=== PATIENT | female | born 1960 | race Caucasian/White ===

== ENCOUNTER 2021-03-02 22:10 | Emergency (ER) | payer MEDICAID, OTHER ==
[~2021-03-02] VITALS: Ht 162.6 cm; Wt 79.5 kg
[~2021-03-02 22:10] MED LIST: ALBU8.5H17 IH; ASPI-611 PO; CARV-50 PO; FURO40TA4 PO; HYDR-4383 PO; LEVO25TA7 PO; SACU1TAB7 PO
[2021-03-02 22:21] VITALS: BP 128/74
[2021-03-02] MEDS ORDERED: PRED20TA PO (23:44)
[2021-03-02] MEDS ORDERED: AMOX-422 PO (23:44)
[2021-03-02] MEDS ORDERED: ACET-1025 PO (23:44)
[2021-03-02] MEDS ORDERED: acetaminophen 325mg tablet PO ONE (23:45)
[2021-03-02] MEDS ORDERED: amox tr/potassium clavulanate 875/125mg TAB PO ONE (23:45)
== END 2021-03-03 00:33 | disposition home or self-care (01) ==
LOC: ER 22:11
DX: J32.9 Chronic sinusitis, unspecified (principal); Z20.822 Contact with and (suspected) exposure to COVID-19; R51.9 Headache, unspecified; K08.89 Other specified disorders of teeth and supporting structures; K04.7 Periapical abscess without sinus; I50.9 Heart failure, unspecified; J44.9 Chronic obstructive pulmonary disease, unspecified; Z72.89 Other problems related to lifestyle; Z88.1 Allergy status to other antibiotic agents; Z88.8 Allergy status to other drugs, medicaments and biological substances; Z88.5 Allergy status to narcotic agent; Z79.82 Long term (current) use of aspirin; Z79.899 Other long term (current) drug therapy
CPT/HCPCS: 70450; 87635; 99284; C9803

== ENCOUNTER 2021-08-05 08:59 | Inpatient (IN) | payer MEDICAID ==
[~2021-08-05] VITALS: Ht 162.6 cm; Wt 85.5 kg
[2021-08-05 10:29] LABS: ALANINE AMINOTRANSFERASE 40 U/L (12-78); ALBUMIN 3.6 G/DL (3.4-5.0); ALBUMIN/GLOBULIN RATIO 0.9 (1.1-1.5); ALKALINE PHOSPHATASE 115 IU/L (46-116); ANION GAP 9 (8-16); ASPARTATE AMINO TRANSFERASE 27 U/L (10-37); BILIRUBIN,TOTAL 0.4 MG/DL (0.1-1.0); BLOOD UREA NITROGEN 17 MG/DL (7-18); BUN/CREATININE RATIO 18.9 (6.6-38.0); CALCIUM 9.3 MG/DL (8.5-10.1); CHLORIDE 105 MMOL/L (99-107); GLUCOSE 97 MG/DL (70-104); POTASSIUM 3.6 MMOL/L (3.5-5.1); SODIUM 141 MMOL/L (135-145); TOTAL CARBON DIOXIDE 26.9 MMOL/L (24-32); TOTAL PROTEIN 7.6 G/DL (6.4-8.2); eGFR 64 ML/MIN
[2021-08-05 10:32] LABS: BASOPHILS # (AUTO) 0.1 X10'3 (0-0.2); BASOPHILS % (AUTO) 0.6 % (0-1); EOSINOPHILS # (AUTO) 0.1 X10'3 (0-0.9); EOSINOPHILS % (AUTO) 1.5 % (0-6); HEMATOCRIT 43.7 % (35.0-45.0); HEMOGLOBIN 14.4 g/dl (12.0-16.0); LYMPHOCYTES # (AUTO) 1.4 X10'3 (1.1-4.8); LYMPHOCYTES % (AUTO) 15.2 % (21-51); MEAN PLATELET VOLUME 8.6 FL (7.4-10.4); MONOCYTES # (AUTO) 0.8 X10'3 (0-0.9); MONOCYTES % (AUTO) 8.3 % (2-12); NEUTROPHILS # (AUTO) 6.8 X10'3 (1.8-7.7); NEUTROPHILS % (AUTO) 74.4 % (42-75); PLATELET COUNT 315 X10'3 (140-440); RED BLOOD COUNT 4.65 X10'6 (4.20-5.60); WHITE BLOOD COUNT 9.2 X10'3 (4.5-11.0)
--- NOTE | 2021-08-05 14:00 | NUR ---
PT AMB WITH STEADY GAIT TO TRIAGE, NO CHEST PAIN/DISCOMFORT, NO SOB, RESP EVEN AND UNLABORED, SKIN P/W/D, WAITING FOR BED IN ER, NONE ARE AVAILABLE
[2021-08-05 16:46] LABS: CLARITY,URINE CLEAR (Clear); COLOR,URINE YELLOW (Yellow); GLUCOSE, URINE NEGATIVE (Neg); KETONES,URINE NEGATIVE (Neg); LEUKOCYTE ESTERASE ,URINE NEGATIVE (Neg); NITRITES, URINE NEGATIVE (Neg); OCCULT BLOOD,URINE TRACE-INTACT (Neg); PROTEIN,URINE NEGATIVE (Neg); UROBILINOGEN,URINE 0.2 E.U/dL (0.2-1.0)
[2021-08-05 16:47] LABS: UA COLLECTION TYPE CLN CATCH MIDSTREAM
[2021-08-05 16:51] LABS: BACTERIA,URINE FEW /HPF (Neg); CAL OXALATE CRYSTALS 1+ /HPF (NEGATIVE); MUCUS STRANDS FEW /LPF (Neg); RBC,URINE 0-2 /HPF (0-2); SQUAMOUS EPITHELIAL CELL,UR FEW /LPF (FEW); WBC,URINE 0-4 /HPF (0-4)
[2021-08-05] MEDS ORDERED: TRAZ-251 PO (18:53)
[2021-08-05 19:06] LABS: D-DIMER 0.46 MG/L FEU (0-0.50)
[2021-08-05] MEDS ORDERED: potassium Cl 20 mEq SR tablet PO STA (19:24)
[2021-08-05] MEDS ORDERED: furosemide 20MG tablet PO ONE (19:25)
[2021-08-05] MEDS ORDERED: aspirin 325mg tablet PO ONE (19:25)
[2021-08-05] MEDS ORDERED: acetaminophen 325mg tablet PO PRN ×2 (20:05)
[2021-08-05] MEDS ORDERED: ondansetron 4mg rapidly disintigrating tab PO PRN (20:05)
[2021-08-05] MEDS ORDERED: diphenhydrAMINE 50 mg/ml inj IV PRN (20:05)
[2021-08-05] MEDS ORDERED: morphine 2 MG/ML inj. syringe IV PRN (20:05)
[2021-08-05] MEDS ORDERED: mag hydrox/Alum hydrox/simeth 30ml oral suspension PO PRN (20:05)
[2021-08-05] MEDS ORDERED: magnesium hydroxide 30ml (MOM) UD suspension PO PRN (20:05)
[2021-08-05] MEDS ORDERED: acetaminophen 650mg rectal suppository RC PRN (20:05)
[2021-08-05] MEDS ORDERED: bisacodyl 10mg suppository rectal RC PRN (20:05)
[2021-08-05] MEDS ORDERED: potassium Cl 20mEq in NS 1,000 ML IV SCH (20:05)
[2021-08-05] MEDS ORDERED: ondansetron/PF 4mg/2ml inj IV PRN (20:05)
[2021-08-05] MEDS ORDERED: diphenhydrAMINE 25mg capsule PO PRN (20:05)
[2021-08-05] MEDS ORDERED: heparin 10,000 units/1 ML INJ IV ONE (20:10)
[2021-08-05] MEDS ORDERED: ALBUTEROL INHALER 1 PUFF/90 MCG INHALER IH PRN (20:15)
[2021-08-05 20:57] LABS: CREATINE KINASE 45 U/L (26-192); LIPASE 87 U/L (73-393); MAGNESIUM 1.8 MG/DL (1.5-2.4); PHOSPHORUS 4.3 MG/DL (2.3-4.5)
[2021-08-05 20:59] LABS: HEMOGLOBIN A1C 5.8 % (4.5-6.2)
[2021-08-05 21:16] LABS: APTT 26 SECONDS (22-32)
[2021-08-05 21:59] LABS: OSMOLALITY 297 MOSM/K (280-300)
[2021-08-05 22:00] VITALS: BP 115/57
[2021-08-05] MEDS: temazepam 15mg capsule PO PRN (22:35)
[2021-08-05] MEDS: HYDROcodone/acetaminophen 5mg/325mg tablet PO PRN (22:36)
[2021-08-05] MEDS: heparin 25,000 UNIT/250ml bag 250 ML IV SCH (23:03)
[2021-08-06] VITALS (8 sets, daily range): BP systolic 82–126; BP diastolic 38–75
[2021-08-06] MEDS: HYDROcodone/acetaminophen 5mg/325mg tablet PO PRN (02:53)
[2021-08-06 06:30] LABS: BASOPHILS % (AUTO) 0.5 % (0-1); EOSINOPHILS # (AUTO) 0.2 X10'3 (0-0.9); EOSINOPHILS % (AUTO) 2.1 % (0-6); HEMATOCRIT 42.3 % (35.0-45.0); LYMPHOCYTES # (AUTO) 2.2 X10'3 (1.1-4.8); LYMPHOCYTES % (AUTO) 26.6 % (21-51); MEAN CORPUSCULAR HEMOGLOBIN 30.7 PG (27.0-31.0); MEAN CORPUSCULAR HGB CONC 33.1 g/dL (33.0-36.5); MEAN CORPUSCULAR VOLUME 92.7 FL (78-98); MONOCYTES # (AUTO) 0.8 X10'3 (0-0.9); MONOCYTES % (AUTO) 9.5 % (2-12); NEUTROPHILS # (AUTO) 5.1 X10'3 (1.8-7.7); NEUTROPHILS % (AUTO) 61.3 % (42-75); PLATELET COUNT 268 X10'3 (140-440); RED BLOOD COUNT 4.56 X10'6 (4.20-5.60); RED CELL DISTRIBUTION WIDTH 13.9 % (11.5-14.5); WHITE BLOOD COUNT 8.4 X10'3 (4.5-11.0)
[2021-08-06 06:33] LABS: APTT 38 SECONDS (22-32)
[2021-08-06 06:57] LABS: ALANINE AMINOTRANSFERASE 34 U/L (12-78); ALBUMIN 3.4 G/DL (3.4-5.0); ALBUMIN/GLOBULIN RATIO 0.9 (1.1-1.5); ALKALINE PHOSPHATASE 108 IU/L (46-116); ANION GAP 8 (8-16); ASPARTATE AMINO TRANSFERASE 22 U/L (10-37); BILIRUBIN,TOTAL 0.4 MG/DL (0.1-1.0); BLOOD UREA NITROGEN 21 MG/DL (7-18); BUN/CREATININE RATIO 20.4 (6.6-38.0); CALCIUM 8.9 MG/DL (8.5-10.1); CHLORIDE 103 MMOL/L (99-107); CHOL/HDL RATIO 3.3 (0.00-4.99); CHOLESTEROL 201 MG/DL (0-200); CREATININE 1.03 MG/DL (0.40-0.90); GLUCOSE 95 MG/DL (70-104); HDL CHOLESTEROL 61 MG/DL (35-60); LDL CHOLESTEROL 106 MG/DL (50-100); POTASSIUM 3.8 MMOL/L (3.5-5.1); SODIUM 140 MMOL/L (135-145); TOTAL CARBON DIOXIDE 29.4 MMOL/L (24-32); TOTAL PROTEIN 7.2 G/DL (6.4-8.2); TRIGLYCERIDES 108 MG/DL (20-135); eGFR 54 ML/MIN
[2021-08-06] MEDS: heparin 10,000 units/1 ML INJ IV PRN ×2 (08:09→20:59)
[2021-08-06] MEDS: sacubitril/valsartan 49mg-51mg tablet PO SCH ×3 (12:09→20:28)
[2021-08-06] MEDS: nitroGLYCERIN 0.4mg/hour patch TD SCH (12:10)
[2021-08-06] MEDS: docusate sod 100mg capsule PO SCH ×2 (12:10→20:28)
[2021-08-06] MEDS: levoTHYROXINE 25mcg tablet PO SCH (12:10)
[2021-08-06] MEDS: aspirin 81mg, enteric-coated 1 TAB TABLET.DR PO SCH (12:10)
[2021-08-06] MEDS: atorvastatin 20mg tablet PO SCH (12:11)
[2021-08-06] MEDS: carVEDilol 12.5mg tablet PO SCH ×3 (12:12→20:28)
[2021-08-06] MEDS: pantoprazole 40mg Tablet.DR PO SCH (12:12)
--- NOTE | 2021-08-06 15:26 | NUR ---
Pagemarilin SLAUGHTER Cathy regarding diet and hypotension.
[2021-08-06] MEDS: temazepam 15mg capsule PO PRN (20:27)
--- NOTE | 2021-08-06 20:47 | NUR ---
held valsartan and coreg for systolic less than 100
[2021-08-07 02:00] VITALS: BP 112/41
--- NOTE | 2021-08-07 02:11 | NUR ---
PT AMB [facility] INC URINE IN UNDERWARE C/O CHEST PAIN AT FIRST 06/26 THEN INCREASED TO 6/10 MEDICATED WITH 1MG MORPHINE FOR THIS AND EKG BEING DONE WHILE PT LAYING DOWN, PT'S ROOM IN WITH THE PT,
[2021-08-07] MEDS: heparin 25,000 UNIT/250ml bag 250 ML IV SCH ×2 (02:18→22:35)
[2021-08-07 02:22] VITALS: BP 112/61
[2021-08-07] MEDS ORDERED: normal saline 1000ml 1,000 ML IVB ONE (02:30)
[2021-08-07] MEDS ORDERED: morphine 2 MG/ML inj. syringe IV PRN (02:35)
[2021-08-07 03:20] LABS: BASOPHILS # (AUTO) 0.1 X10'3 (0-0.2); BASOPHILS % (AUTO) 0.6 % (0-1); EOSINOPHILS # (AUTO) 0.2 X10'3 (0-0.9); EOSINOPHILS % (AUTO) 1.8 % (0-6); HEMATOCRIT 41.1 % (35.0-45.0); HEMOGLOBIN 13.6 g/dl (12.0-16.0); LYMPHOCYTES # (AUTO) 2.6 X10'3 (1.1-4.8); LYMPHOCYTES % (AUTO) 29.1 % (21-51); MEAN CORPUSCULAR HEMOGLOBIN 30.4 PG (27.0-31.0); MEAN CORPUSCULAR VOLUME 92.1 FL (78-98); MEAN PLATELET VOLUME 8.3 FL (7.4-10.4); MONOCYTES # (AUTO) 0.9 X10'3 (0-0.9); NEUTROPHILS # (AUTO) 5.2 X10'3 (1.8-7.7); NEUTROPHILS % (AUTO) 58.5 % (42-75); PLATELET COUNT 282 X10'3 (140-440); RED BLOOD COUNT 4.46 X10'6 (4.20-5.60); RED CELL DISTRIBUTION WIDTH 13.9 % (11.5-14.5); WHITE BLOOD COUNT 8.9 X10'3 (4.5-11.0)
[2021-08-07 03:33] LABS: ALANINE AMINOTRANSFERASE 29 U/L (12-78); ALBUMIN 3.1 G/DL (3.4-5.0); ALBUMIN/GLOBULIN RATIO 0.9 (1.1-1.5); ALKALINE PHOSPHATASE 104 IU/L (46-116); ANION GAP 7 (8-16); ASPARTATE AMINO TRANSFERASE 22 U/L (10-37); BILIRUBIN,TOTAL 0.4 MG/DL (0.1-1.0); BLOOD UREA NITROGEN 29 MG/DL (7-18); BUN/CREATININE RATIO 27.9 (6.6-38.0); CALCIUM 8.2 MG/DL (8.5-10.1); CHLORIDE 104 MMOL/L (99-107); CREATININE 1.04 MG/DL (0.40-0.90); GLUCOSE 109 MG/DL (70-104); POTASSIUM 4.1 MMOL/L (3.5-5.1); SODIUM 138 MMOL/L (135-145); TOTAL CARBON DIOXIDE 27.1 MMOL/L (24-32); TOTAL PROTEIN 6.7 G/DL (6.4-8.2); eGFR 54 ML/MIN
[2021-08-07 05:19] LABS: OSMOLALITY UA 370 MOSM/K (50-1400)
[2021-08-07 05:21] LABS: URINE AMPHETAMINE SCREEN NEGATIVE (Neg); URINE BARBITUATE SCREEN NEGATIVE (Neg); URINE BENZODIAZEPINES SCREEN NEGATIVE (Neg); URINE CANNABINOID SCREEN NEGATIVE (Neg); URINE COCAINE SCREEN NEGATIVE (Neg); URINE METHADONE SCREEN NEGATIVE (Neg); URINE OPIATE SCREEN POSITIVE (Neg); URINE PHENCYCLIDINE SCREEN NEGATIVE (Neg)
[2021-08-07 06:00] VITALS: BP 95/40
--- NOTE | 2021-08-07 06:59 | NUR ---
Patient in room PCU 3015. I have received report from Dewey and had the opportunity to ask questions and assume patient care.
[2021-08-07] MEDS: atorvastatin 20mg tablet PO SCH (07:26)
[2021-08-07] MEDS: pantoprazole 40mg Tablet.DR PO SCH (07:26)
[2021-08-07] MEDS: docusate sod 100mg capsule PO SCH ×2 (07:26→20:00)
[2021-08-07] MEDS: levoTHYROXINE 25mcg tablet PO SCH (07:27)
[2021-08-07] MEDS: aspirin 81mg, enteric-coated 1 TAB TABLET.DR PO SCH (07:27)
[2021-08-07] MEDS: sacubitril/valsartan 49mg-51mg tablet PO SCH ×2 (07:34→22:22)
[2021-08-07] MEDS: carVEDilol 12.5mg tablet PO SCH ×2 (08:00→22:22)
[2021-08-07] MEDS: nitroGLYCERIN 0.4mg/hour patch TD SCH (08:00)
[2021-08-07 11:00] VITALS: BP 94/37
--- NOTE | 2021-08-07 12:17 | NUR ---
Spoke with Yokasta @ [facility] Insurance Associate for for this hospital is Nelson Jack and Rep masonry contractor today is Arden Anders. Yokasta will reach out to Reps to set an appoinment for tomorrow. Waiting for Yokasta to call back with confirmation for tomorrows defibrillator interrogation. Patient's Model number [id number], Serial Number [id number] and Implant date 02/16/2018.
--- NOTE | 2021-08-07 12:29 | NUR ---
Receive call back from Arden Anders from [place]. A software support representative will be in tomorrow morning to interrogate defibrillator.
[2021-08-07 15:00] VITALS: BP 106/46
[2021-08-07] MEDS: temazepam 15mg capsule PO PRN (22:22)
[2021-08-07] MEDS: HYDROcodone/acetaminophen 5mg/325mg tablet PO PRN (22:22)
[2021-08-08 02:00] VITALS: BP 91/45
[2021-08-08 06:24] LABS: BASOPHILS % (AUTO) 0.6 % (0-1); EOSINOPHILS # (AUTO) 0.2 X10'3 (0-0.9); EOSINOPHILS % (AUTO) 2.3 % (0-6); HEMATOCRIT 39.4 % (35.0-45.0); HEMOGLOBIN 13.1 g/dl (12.0-16.0); LYMPHOCYTES # (AUTO) 2.3 X10'3 (1.1-4.8); LYMPHOCYTES % (AUTO) 32.7 % (21-51); MEAN CORPUSCULAR HGB CONC 33.1 g/dL (33.0-36.5); MEAN CORPUSCULAR VOLUME 93.8 FL (78-98); MEAN PLATELET VOLUME 8.5 FL (7.4-10.4); MONOCYTES # (AUTO) 0.8 X10'3 (0-0.9); MONOCYTES % (AUTO) 11.1 % (2-12); NEUTROPHILS # (AUTO) 3.8 X10'3 (1.8-7.7); NEUTROPHILS % (AUTO) 53.3 % (42-75); PLATELET COUNT 266 X10'3 (140-440); RED CELL DISTRIBUTION WIDTH 14.1 % (11.5-14.5); WHITE BLOOD COUNT 7.2 X10'3 (4.5-11.0)
[2021-08-08 06:51] LABS: ALANINE AMINOTRANSFERASE 25 U/L (12-78); ALBUMIN/GLOBULIN RATIO 0.9 (1.1-1.5); ALKALINE PHOSPHATASE 96 IU/L (46-116); ANION GAP 5 (8-16); ASPARTATE AMINO TRANSFERASE 18 U/L (10-37); BILIRUBIN,TOTAL 0.3 MG/DL (0.1-1.0); BLOOD UREA NITROGEN 24 MG/DL (7-18); BUN/CREATININE RATIO 26.4 (6.6-38.0); CALCIUM 8.3 MG/DL (8.5-10.1); CHLORIDE 107 MMOL/L (99-107); CREATININE 0.91 MG/DL (0.40-0.90); GLUCOSE 100 MG/DL (70-104); POTASSIUM 4.1 MMOL/L (3.5-5.1); SODIUM 140 MMOL/L (135-145); TOTAL CARBON DIOXIDE 28.4 MMOL/L (24-32); TOTAL PROTEIN 6.4 G/DL (6.4-8.2); eGFR 63 ML/MIN
[2021-08-08] MEDS: carVEDilol 12.5mg tablet PO SCH (08:00)
[2021-08-08] MEDS: nitroGLYCERIN 0.4mg/hour patch TD SCH (08:00)
[2021-08-08] MEDS: docusate sod 100mg capsule PO SCH (08:56)
[2021-08-08] MEDS: sacubitril/valsartan 49mg-51mg tablet PO SCH (08:56)
[2021-08-08] MEDS: aspirin 81mg, enteric-coated 1 TAB TABLET.DR PO SCH (08:56)
[2021-08-08] MEDS: atorvastatin 20mg tablet PO SCH (08:56)
[2021-08-08] MEDS: pantoprazole 40mg Tablet.DR PO SCH (08:57)
[2021-08-08] MEDS: levoTHYROXINE 25mcg tablet PO SCH (08:57)
[2021-08-08] MEDS ORDERED: FURO40TA4 PO (11:16)
[2021-08-08] MEDS ORDERED: ATOR20TA66 PO (11:16)
[2021-08-08] MEDS ORDERED: LEVO25TA7 PO (11:16)
[2021-08-08] MEDS ORDERED: ASPI-611 PO (11:16)
[2021-08-08] MEDS ORDERED: ALBU8.5H17 IH (11:16)
[2021-08-08] MEDS ORDERED: SACU1TAB7 PO (11:16)
[2021-08-08] MEDS ORDERED: CARV-50 PO (11:16)
--- NOTE | 2021-08-08 16:18 | NUR ---
Patient stable for discharge per Dr. Morgan orders. All discharge instructions reviewed with patient and all questions answered. PIV discontinued, cannula intact. Tele discontinued. All belongings collected and sent with patient. Wheeled to lobby via nursing staff, picked up by family.
== END 2021-08-08 14:04 | disposition home or self-care (01) | DRG 190 ==
LOC: ER 08:59 → ED HOLD 20:09 → PCU 3S 22:00
PROVIDERS: ADMIT Family Medicine; ATTEND Internal Medicine
PROC: 4B02XSZ Measurement of Cardiac Pacemaker, External Approach (ICD-10-PCS; principal; 2021-08-08)
DX: I21.4 Non-ST elevation (NSTEMI) myocardial infarction (principal); I50.23 Acute on chronic systolic (congestive) heart failure; I42.7 Cardiomyopathy due to drug and external agent; E03.9 Hypothyroidism, unspecified; E78.5 Hyperlipidemia, unspecified; F15.10 Other stimulant abuse, uncomplicated; J44.9 Chronic obstructive pulmonary disease, unspecified; I11.0 Hypertensive heart disease with heart failure; Z95.0 Presence of cardiac pacemaker; Z85.038 Personal history of other malignant neoplasm of large intestine; Z56.0 Unemployment, unspecified; Z72.0 Tobacco use; Z79.899 Other long term (current) drug therapy; Z91.14 Patient's other noncompliance with medication regimen; Z88.5 Allergy status to narcotic agent; Z91.013 Allergy to seafood; Z88.8 Allergy status to other drugs, medicaments and biological substances; Z79.82 Long term (current) use of aspirin; Z71.51 Drug abuse counseling and surveillance of drug abuser; Z71.6 Tobacco abuse counseling
CPT/HCPCS: 36415; 71045; 80053; 80061; 80305; 81001; 82550; 83036; 83690; 83735; 83880; 83930; 83935; 84100; 84484; 85025; 85379; 85610; 85730; 87081; 93005; 93306; 99285; G0378; J1644; J2270; J7030

== ENCOUNTER 2024-01-11 12:13 | Inpatient (IN) | payer OTHER, MEDICAID ==
[~2024-01-11] VITALS: Ht 162.6 cm; Wt 77.3 kg
[~2024-01-11 12:13] MED LIST changes: -ASPI-611 PO; +ATOR20TA66 PO; -HYDR-4383 PO; +PANT-47 PO; +TRAZ-256 PO
[2024-01-11 14:04] LABS: BASOPHILS % (AUTO) 0.4 % (0-1); EOSINOPHILS # (AUTO) 0.1 X10'3 (0-0.9); EOSINOPHILS % (AUTO) 0.6 % (0-6); HEMATOCRIT 41.7 % (35.0-45.0); HEMOGLOBIN 13.5 g/dl (12.0-16.0); LYMPHOCYTES # (AUTO) 1.1 X10'3 (1.1-4.8); LYMPHOCYTES % (AUTO) 9.4 % (21-51); MEAN CORPUSCULAR HEMOGLOBIN 29.8 PG (27.0-31.0); MEAN CORPUSCULAR HGB CONC 32.3 g/dL (33.0-36.5); MEAN CORPUSCULAR VOLUME 92.1 FL (78-98); MEAN PLATELET VOLUME 8.6 FL (7.4-10.4); MONOCYTES # (AUTO) 1.5 X10'3 (0-0.9); MONOCYTES % (AUTO) 12.8 % (2-12); NEUTROPHILS # (AUTO) 8.9 X10'3 (1.8-7.7); NEUTROPHILS % (AUTO) 76.8 % (42-75); PLATELET COUNT 252 X10'3 (140-440); RED BLOOD COUNT 4.52 X10'6 (4.20-5.60); RED CELL DISTRIBUTION WIDTH 14.6 % (11.5-14.5); WHITE BLOOD COUNT 11.5 X10'3 (4.5-11.0)
[2024-01-11 14:19] LABS: ALANINE AMINOTRANSFERASE 52 U/L (12-78); ALBUMIN 2.7 G/DL (3.4-5.0); ALBUMIN/GLOBULIN RATIO 0.6 (1.1-1.5); ALKALINE PHOSPHATASE 166 IU/L (46-116); ANION GAP 4 (8-16); ASPARTATE AMINO TRANSFERASE 44 U/L (10-37); BILIRUBIN,TOTAL 0.3 MG/DL (0.1-1.0); BLOOD UREA NITROGEN 14 MG/DL (7-18); BUN/CREATININE RATIO 15.6 (10.0-20.0); CALCIUM 8.5 MG/DL (8.5-10.1); CHLORIDE 98 MMOL/L (99-107); GLUCOSE 101 MG/DL (70-104); SODIUM 134 MMOL/L (135-145); TOTAL CARBON DIOXIDE 31.6 MMOL/L (24-32); TOTAL PROTEIN 7.4 G/DL (6.4-8.2); eCRCL 55 ML/MIN; eGFR 63 ML/MIN
[2024-01-11 14:27] LABS: PRO BRAIN NATRIURETIC PEPTIDE 1692 PG/ML (0-125)
[2024-01-11] MEDS: acetaminophen 1,000mg/100ml IV 100 ML IV ONE (15:14)
[2024-01-11] MEDS ORDERED: aspirin 325mg tablet PO STA (16:40)
[2024-01-11] MEDS ORDERED: aspirin 81mg tab.chew PO STA (16:42)
[2024-01-11] MEDS: aspirin 325mg tablet PO STA (17:23)
[2024-01-11] MEDS ORDERED: iohexol 350 MG/ML 50ML vial IV ONE (17:48)
[2024-01-11] MEDS ORDERED: iohexol 350MG/ML 100ml bottle IV ONE (17:48)
[2024-01-11] MEDS ORDERED: potassium Cl 20 mEq SR tablet PO PRN ×2 (18:05)
[2024-01-11] MEDS ORDERED: mag hydrox/Alum hydrox/simeth 30ml oral suspension PO PRN (18:05)
[2024-01-11] MEDS ORDERED: magnesium sulf-water 4G/100mL 100 ML IV PRN (18:05)
[2024-01-11] MEDS ORDERED: ondansetron/PF 4mg/2ml inj IV PRN (18:05)
[2024-01-11] MEDS ORDERED: magnesium sulf-water 2g/50mL 50 ML IV PRN (18:05)
[2024-01-11] MEDS ORDERED: PERFLUTREN PROTEIN-A MICROSPHR (Optison) 0.22 MG/ML 3ML VIAL IV ONE (18:05)
[2024-01-11] MEDS ORDERED: magnesium Cl slow-release 64mg tablet PO PRN (18:05)
[2024-01-11] MEDS ORDERED: potassium Cl 40MEQ/1/2NS 520ml 520 ML IV PRN (18:05)
[2024-01-11] MEDS ORDERED: magnesium hydroxide 30ml (MOM) UD suspension PO PRN (18:05)
[2024-01-11] MEDS ORDERED: SERT-434 PO (18:29)
[2024-01-11] MEDS: docusate sod 100mg capsule PO SCH (20:00)
[2024-01-11] MEDS ORDERED: albuterol 2.5 MG/3 ML nebule NEB PRN (20:00)
[2024-01-11] MEDS: K and/or MAG REPLACEMENT MC SCH (20:00)
[2024-01-11] MEDS: carVEDilol 12.5mg tablet PO SCH (20:35)
[2024-01-11] MEDS: enoxaparin 40mg/0.4ml syringe SQ SCH (20:36)
[2024-01-11] MEDS: normal saline 1000ml 1,000 ML IV ONE (21:09)
[2024-01-11 22:36] VITALS: BP 106/41; PULSE 69; RESP 20; TEMP 97.6; O2SAT 95
[2024-01-11] MEDS: normal saline 1000ml 1,000 ML IV SCH (23:00)
[2024-01-11] MEDS: traZODone 50mg tablet PO PRN (23:17)
[2024-01-11] MEDS: acetaminophen 325mg tablet PO PRN (23:18)
[2024-01-12] VITALS (9 sets, daily range): BP systolic 96–113; BP diastolic 42–54; PULSE 70–93; RESP 14–18; TEMP 97.8–98.4; O2SAT 94–100
[2024-01-12] MEDS: sacubitril/valsartan 49mg-51mg tablet PO SCH (00:10)
[2024-01-12 06:59] LABS: BASOPHILS % (AUTO) 0.6 % (0-1); EOSINOPHILS # (AUTO) 0.1 X10'3 (0-0.9); EOSINOPHILS % (AUTO) 1.9 % (0-6); HEMATOCRIT 41.1 % (35.0-45.0); HEMOGLOBIN 13.3 g/dl (12.0-16.0); LYMPHOCYTES # (AUTO) 1.6 X10'3 (1.1-4.8); LYMPHOCYTES % (AUTO) 23.1 % (21-51); MEAN CORPUSCULAR HGB CONC 32.4 g/dL (33.0-36.5); MEAN CORPUSCULAR VOLUME 92.7 FL (78-98); MEAN PLATELET VOLUME 8.2 FL (7.4-10.4); MONOCYTES % (AUTO) 14.9 % (2-12); NEUTROPHILS # (AUTO) 4.1 X10'3 (1.8-7.7); NEUTROPHILS % (AUTO) 59.5 % (42-75); PLATELET COUNT 271 X10'3 (140-440); RED BLOOD COUNT 4.43 X10'6 (4.20-5.60); RED CELL DISTRIBUTION WIDTH 14.6 % (11.5-14.5); WHITE BLOOD COUNT 6.8 X10'3 (4.5-11.0)
[2024-01-12] MEDS ORDERED: levoTHYROXINE 25mcg tablet PO SCH (07:00)
[2024-01-12 07:30] LABS: ALANINE AMINOTRANSFERASE 43 U/L (12-78); ALBUMIN 2.6 G/DL (3.4-5.0); ALBUMIN/GLOBULIN RATIO 0.6 (1.1-1.5); ALKALINE PHOSPHATASE 157 IU/L (46-116); ANION GAP 6 (8-16); ASPARTATE AMINO TRANSFERASE 30 U/L (10-37); BILIRUBIN,TOTAL 0.3 MG/DL (0.1-1.0); BLOOD UREA NITROGEN 13 MG/DL (7-18); CALCIUM 8.7 MG/DL (8.5-10.1); CHLORIDE 102 MMOL/L (99-107); CREATININE 0.93 MG/DL (0.40-0.90); GLUCOSE 94 MG/DL (70-104); MAGNESIUM 2.4 MG/DL (1.5-2.4); POTASSIUM 3.9 MMOL/L (3.5-5.1); SODIUM 138 MMOL/L (135-145); THYROID STIMULATING HORMONE 6.98 ulU/ml (0.34-4.50); TOTAL CARBON DIOXIDE 30.3 MMOL/L (24-32); TOTAL PROTEIN 7.1 G/DL (6.4-8.2); eCRCL 53 ML/MIN; eGFR 61 ML/MIN
[2024-01-12] MEDS ORDERED: atorvastatin 20mg tablet PO SCH (08:00)
[2024-01-12] MEDS ORDERED: furosemide 40mg tablet PO SCH (08:00)
[2024-01-12] MEDS ORDERED: nitroGLYCERIN 0.4mg SUBLingual tab SL PRN (08:20)
[2024-01-12] MEDS ORDERED: metoprolol tartrate 1mg/ml inj IV PRN (08:20)
[2024-01-12] MEDS ORDERED: aminophylline 250mg/10ml inj. IV PRN (08:20)
[2024-01-12] MEDS: regadenoson 0.4mg/5ml syringe IV PRN (10:16)
[2024-01-12] MEDS ORDERED: normal saline 500ml IV soln 500 ML IV ONE (12:05)
[2024-01-12] MEDS ORDERED: ketorolac trometh 15mg/ml vial 15 MG/ML ML IM ONE (12:05)
[2024-01-12] MEDS ORDERED: acetaminophen 1,000mg/100ml IV 100 ML IV ONE (12:05)
== END 2024-01-12 13:13 | disposition left against medical advice (07) | DRG 551 ==
LOC: ER 12:14 → PCU 3S 18:15
PROVIDERS: ADMIT Family Medicine; ATTEND Family Medicine
PROC: B32T1ZZ Computerized Tomography (CT Scan) of Left Pulmonary Artery using Low Osmolar Contrast (ICD-10-PCS; 2024-01-11)
PROC: B3201ZZ Computerized Tomography (CT Scan) of Thoracic Aorta using Low Osmolar Contrast (ICD-10-PCS; 2024-01-11)
PROC: B32S1ZZ Computerized Tomography (CT Scan) of Right Pulmonary Artery using Low Osmolar Contrast (ICD-10-PCS; 2024-01-11)
PROC: 4A02XM4 Measurement of Cardiac Total Activity, External Approach (ICD-10-PCS; principal; 2024-01-12)
PROC: 3E033HZ Introduction of Radioactive Substance into Peripheral Vein, Percutaneous Approach (ICD-10-PCS; 2024-01-12)
DX: M54.2 Cervicalgia (principal); I21.A1 Myocardial infarction type 2; R42 Dizziness and giddiness; Z53.21 Procedure and treatment not carried out due to patient leaving prior to being seen by health care provider; Z20.822 Contact with and (suspected) exposure to COVID-19; E03.9 Hypothyroidism, unspecified; I50.9 Heart failure, unspecified; J44.9 Chronic obstructive pulmonary disease, unspecified; Z88.2 Allergy status to sulfonamides; Z88.8 Allergy status to other drugs, medicaments and biological substances; Z88.1 Allergy status to other antibiotic agents; Z91.013 Allergy to seafood; Z79.899 Other long term (current) drug therapy; Z85.038 Personal history of other malignant neoplasm of large intestine; Z95.0 Presence of cardiac pacemaker; Z87.891 Personal history of nicotine dependence; Z85.21 Personal history of malignant neoplasm of larynx
CPT/HCPCS: 36415; 70450; 71045; 71275; 74174; 78452; 80053; 83605; 83735; 83880; 84145; 84439; 84443; 84484; 85025; 87081; 87502; 87503; 87811; 93005; 93017; 93306; 96365; 99285; A9500; G0378; J0131; J1650; J2785; J7030; Q9967

== ENCOUNTER 2024-11-08 20:25 | Emergency (ER) | payer MEDICARE, MEDICAID ==
[~2024-11-08] VITALS: Ht 162.6 cm; Wt 83.2 kg
[~2024-11-08 20:25] MED LIST changes: -PANT-47 PO; +SERT-434 PO
[2024-11-08 20:29] VITALS: BP 135/66; PULSE 80; RESP 20; O2SAT 98
--- NOTE | 2024-11-08 21:14 | Physician Documentation ---
History of Present Illness ~ Chief Complaint: Bite-insect Stated Complaint: "BITES" Time Seen by MD: 21:13 Primary Medical Doctor: none HPI 64-year-old female who presents with concern for insect bites. She tells me that over the past 2 days she has been having several small red spots appear on her extremities. She states that they feel like sharp insect bites and then become very itchy. She did not actually see any insects. She tried some Benadryl cream without much relief. She has been scratching of the wounds and some of them have opened up and has been bleeding. She does have an area on her left ankle with chronic discoloration and some mild tenderness. She tells me this has been there for months, she does not know if it has gotten significantly worse recently No fevers or other infectious symptoms. No other acute concerns. Medication Reconciliation Allergies: Coded Allergies: amitriptyline (Verified Allergy, Intermediate, 07/10/23) sulfamethoxazole (Verified Allergy, Intermediate, 07/10/23) trimethoprim (Verified Allergy, Intermediate, 07/10/23) codeine (Verified Allergy, Unknown, 07/10/23) Uncoded Allergies: SHELL FISH (Allergy, Unknown, TONGUE SWELLING, 08/05/21) Scheduled Atorvastatin Calcium (Atorvastatin Calcium), 40 MG PO DAILY Carvedilol (Carvedilol), 1 TAB PO Q12H Furosemide 40 MG (Lasix), 1 TAB PO DAILY Levothyroxine Sodium (Levothyroxine Sodium), 2 TAB PO DAILY Permethrin 5% Cream* (Elimite 5% Cream*), 1 APPLIC TOP ONCE Sacubitril/Valsartan (Entresto 49 mg-51 mg Tablet), 1 TAB PO BID Sertraline HCl (Sertraline HCl), 1.5 TAB PO DAILY, (Reported) Scheduled PRN Albuterol Sulfate (Proair Hfa), 2 PUFFS IH QID PRN for SOB or wheezing Trazodone HCl (Trazodone HCl), 1 TAB PO HS PRN for sleep, (Reported) Past Medical History Past Medical History: Congestive Heart Failure, COPD, Diverticulitis, Colon Cancer Past Surgical History: brain surgery, pacemaker Patient History: Cancer of larynx FATHER FH: breast cancer Sister FH: liver cancer Sister FH: uterine cancer MOTHER Alcohol Use: Rarely Drug Use: none, other Lives with: Alone Lives In: Home Occupation: employed Review of Systems Constitutional: Reports: fever Integumentary: Reports: rash, itching Physical Exam Vital Signs: Temperature: 97.5, Source: Temporal, Heart Rate: 80, Respiratory Rate: 20, BP: 135/66, Pulse Oximetry: 98, Weight: 83.180 Oxygen Flow Rate: 0 Physical Exam General: This is a pleasant and talkative middle-aged female, not in distress HEENT: Atraumatic, oropharynx is moist Heart: Regular rate and rhythm, normal-appearing peripheral perfusion Lungs: normal work of breathing, normal oxygen saturation on room air Neuro: Alert and oriented Psychiatric: Appears mildly anxious, but is cooperative with exam Skin: The patient has several small scattered red spots on her arms and legs, with areas of excoriation and several small scabs. She also has some chronic discoloration to her ankles bilateral, left worse than right. No lesions on her trunk. Progress Results/Orders Results/Orders Completed Orders - VIVIANA VÁZQUEZ MD Diphenhydramine Capsule (Benadryl Capsul (11/08/24 21:35) Vital Signs 11/08/24 20:29 Temp 97.5 Pulse 80 Resp 20 B/P (MAP) 135/66 Pulse Ox 98 O2 Flow Rate 0 Medical Decision Making Differential Dx:Considerations: Include: Contact dermatitis, Erythema multiforme, Herpes zoster, Pityriasis rosea, Scabies, Viral exanthema, Other Additional Comment The patient presents with possible bug bites that are itchy. On exam she does have multiple small lesions that could be consistent with bug bites. No evidence of cellulitis or more dangerous process. No recent medication changes to suggest drug reaction. No infectious symptoms. Given concern for possible bug bites or other insect infestation, she will be treated with permethrin, and given Benadryl for the itching. She was given home care instructions and outpatient follow up. Departure Time of Disposition: 21:32 Disposition: HOME / SELF CARE / HOMELESS Impression: Primary Impression: Insect bites Condition: Stable Discharge Instructions: Insect Bite, Adult Referrals: NO PRIMARY CARE PROVIDER (PCP) Prescriptions Permethrin 5% Cream* (Elimite 5% Cream*) 60 Gm Cream.gm. 1 APPLIC TOP ONCE, #60 GM 1 Refill massage into skin from head to soles of feet one time, leave on for 8-14 hours then remove by thorough washing Prov: VIVIANA VÁZQUEZ MD 11/08/24 Education Educated: Patient Educated regarding: diagnosis, treatment, need for follow up Signature Scribe Signature: fazal Attestation: VIVIANA Pugh MD Nov 08, 2024 21:14
[2024-11-08] MEDS ORDERED: PERM60CR27 TOP (21:33)
[2024-11-08 21:41] VITALS: TEMP 97.5
== END 2024-11-08 21:47 | disposition home or self-care (01) ==
LOC: ER 20:26
DX: S90.562A Insect bite (nonvenomous), left ankle, initial encounter (principal); I50.9 Heart failure, unspecified; J44.9 Chronic obstructive pulmonary disease, unspecified; Z88.1 Allergy status to other antibiotic agents; Z88.2 Allergy status to sulfonamides; Z88.5 Allergy status to narcotic agent; Z88.8 Allergy status to other drugs, medicaments and biological substances; Z95.0 Presence of cardiac pacemaker; W57.XXXA Bitten or stung by nonvenomous insect and other nonvenomous arthropods, initial encounter; Y93.89 Activity, other specified; Y92.89 Other specified places as the place of occurrence of the external cause; Y99.8 Other external cause status
CPT/HCPCS: 99282; Q0163